=== PATIENT | female | born 1935 | race Caucasian/White ===

== ENCOUNTER → 2020-10-11 | Outpatient (CLI) | payer MEDICARE, BC ==
[~2020-10-11] MED LIST: AMLO5TAB4 PO; FOLI-43 PO; GABA-532 PO; LEVO75TA7 PO; PRED5TAB48 PO
== END | disposition home or self-care (01) ==
LOC: MRI 12:49
PROVIDERS: ATTEND Internal Medicine Critical Care Medicine
DX: S83.241A Other tear of medial meniscus, current injury, right knee, initial encounter (principal); M25.462 Effusion, left knee; M06.9 Rheumatoid arthritis, unspecified; M94.262 Chondromalacia, left knee; X58.XXXA Exposure to other specified factors, initial encounter; Y93.89 Activity, other specified; Y92.89 Other specified places as the place of occurrence of the external cause; Y99.8 Other external cause status; M25.461 Effusion, right knee
CPT/HCPCS: 73721

== ENCOUNTER → 2021-03-15 | Outpatient (CLI) | payer MEDICARE, BC ==
[~2021-03-15] MED LIST changes: +BARIUM SULFATE 176 GM SUSP.RECON ONE; +EZ-HD SUSPENSION(BARIUM SULFATE 340GM) PO ONE
== END | disposition home or self-care (01) ==
LOC: RAD 09:22
PROVIDERS: ATTEND Internal Medicine Critical Care Medicine
DX: K44.9 Diaphragmatic hernia without obstruction or gangrene (principal); R13.10 Dysphagia, unspecified
CPT/HCPCS: 74220

== ENCOUNTER 2022-05-29 15:58 | Inpatient (IN) | payer MEDICARE, BC ==
[~2022-05-29] VITALS: Ht 154.9 cm; Wt 59.9 kg
[~2022-05-29 15:58] MED LIST changes: -BARIUM SULFATE 176 GM SUSP.RECON ONE; -EZ-HD SUSPENSION(BARIUM SULFATE 340GM) PO ONE
[2022-05-29] MEDS ORDERED: TETANUS AND DIPHTHERIA TOX/PF 0.5ML SYR (ADULT) IM ONE (17:00)
[2022-05-29] MEDS ORDERED: LIDOCAINE HCL 1% 20ML VIAL (Pyxis) INJ INFIL ONE (17:15)
[2022-05-29 17:16] LABS: BASOPHILS % 0.8 % (0.0-2.0); EOSINOPHILS % 0.5 % (0.0-5.0); HEMATOCRIT. 33.2 % (36.0-48.0); HEMOGLOBIN. 11.1 g/dL (12.0-16.0); LYMPHOCYTES % 12.4 % (20.0-50.0); MEAN CORPUSCULAR VOLUME 89.4 fL (81.0-99.0); MEAN PLATELET VOLUME 7.8 fl (7.4-10.4); MONOCYTES % 9.5 % (2.0-8.0); NEUTROPHILS % 76.8 % (40.0-76.0); PLATELET 349 x1000/uL (130-400); RED BLOOD CELL COUNT 3.72 mill/uL (4.2-5.4); RED CELL DISTRIBUTION WIDTH 18.1 % (11.6-14.6)
[2022-05-29 17:26] LABS: CHLORIDE 110 mEq/L (98-107)
[2022-05-29] MEDS ORDERED: POTASSIUM CHLORIDE 20MEQ/PACKET PO ONE (18:00)
[2022-05-29] MEDS ORDERED: TETANUS, DIPHTHERIA, PERTUSSIS VAC/PF 0.5ML (>10YR OLD) IM ONE ×2 (18:15→18:45)
[2022-05-29] MEDS ORDERED: CEPHALEXIN 250MG CAPSULE PO ONE (18:15)
[2022-05-29] MEDS ORDERED: LIDOCAINE HCL 1% 10 MG/ML 10ML VIAL IJ NR (18:15)
[2022-05-29] MEDS ORDERED: POTASSIUM CHLORIDE 20MEQ/PACKET PO NR (18:15)
[2022-05-30] MEDS ORDERED: CLONIDINE 0.1MG TABLET PO PRN (00:45)
[2022-05-30] MEDS ORDERED: ACETAMINOPHEN 325MG TABLET PO PRN ×2 (00:45)
[2022-05-30] MEDS ORDERED: ONDANSETRON HCL 4MG/2ML INJ IV PRN (00:45)
[2022-05-30] MEDS ORDERED: GUAIFENESIN 200MG/10ML SUGAR FREE UDC PO PRN (00:45)
[2022-05-30] MEDS ORDERED: ZOLPIDEM TARTRATE 5MG TABLET PO PRN (00:45)
[2022-05-30] MEDS ORDERED: NALOXONE HCL 0.4MG/ML VIAL IV PRN (01:00)
[2022-05-30 02:13] LABS: CLARITY URINE CLEAR (CLEAR); COLOR URINE YELLOW (YELLOW); KETONES URINE 1+ (NEGATIVE); LEUKOCYTE ESTERASE URINE NEGATIVE (NEGATIVE); NITRITE URINE NEGATIVE (NEGATIVE); OCCULT BLOOD URINE NEGATIVE (NEGATIVE); PROTEIN URINE 1+ (NEGATIVE); SPECIFIC GRAVITY URINE 1.012 (1.005-1.030); UROBILINOGEN URINE 0.2 E.U./dL (0.2-1.0)
[2022-05-30] MEDS: HYDROCODONE/ACETAMINOPHEN 5/325MG TABLET PO PRN (04:52)
[2022-05-30] MEDS: LEVOTHYROXINE SODIUM 75MCG TABLET PO SCH (08:32)
[2022-05-30] MEDS: POTASSIUM CHLORIDE 20MEQ TABLET SR PO SCH (09:41)
[2022-05-30] MEDS ORDERED: MAGNESIUM 2 G PREMIX 50 ML IV NR (12:00)
[2022-05-30] MEDS ORDERED: POTASSIUM CHLORIDE INJ 40 MEQ in DEXT 5% WATER 250 ML IV ONE (15:45)
[2022-05-30] MEDS: KCL 20MEQ/100ML X 2 FOR TOTAL KCL 40MEQ/200ML IV SCH ×2 (16:30→19:30)
[2022-05-31 02:10] VITALS: BP 148/76
[2022-05-31] MEDS: HYDROCODONE/ACETAMINOPHEN 5/325MG TABLET PO PRN ×3 (02:59→16:59)
[2022-05-31] MEDS: LEVOTHYROXINE SODIUM 75MCG TABLET PO SCH (05:51)
[2022-05-31] MEDS ORDERED: AMLO5TAB88 MT (07:06)
[2022-05-31] MEDS ORDERED: IBUP-2030 MT (07:06)
[2022-05-31] MEDS ORDERED: LIP40 MT (07:06)
[2022-05-31] MEDS ORDERED: ESTR1TAB17 MT (07:06)
[2022-05-31] MEDS ORDERED: OMEP20CA14 MT (07:06)
[2022-05-31] MEDS ORDERED: METH2.5T PO (07:06)
[2022-05-31] MEDS ORDERED: HYDR-4009 MT (07:06)
[2022-05-31] MEDS ORDERED: ENAL5TAB21 MT (07:06)
[2022-05-31] MEDS ORDERED: ONDA4TAB11 PO (07:06)
[2022-05-31] MEDS ORDERED: FOLI-43 MT (07:06)
[2022-05-31 08:00] VITALS: BP 122/54
[2022-05-31 08:27] LABS: BASOPHILS % 0.5 % (0.0-2.0); EOSINOPHILS % 0.4 % (0.0-5.0); HEMATOCRIT. 31.6 % (36.0-48.0); HEMOGLOBIN. 10.2 g/dL (12.0-16.0); LYMPHOCYTES % 15.9 % (20.0-50.0); MEAN CORPUSCULAR HEMOGLOBIN 29.1 pg (28.0-32.0); MEAN PLATELET VOLUME 7.4 fl (7.4-10.4); MONOCYTES % 9.8 % (2.0-8.0); NEUTROPHILS % 73.4 % (40.0-76.0); PLATELET 359 x1000/uL (130-400); RED BLOOD CELL COUNT 3.52 mill/uL (4.2-5.4); RED CELL DISTRIBUTION WIDTH 18.8 % (11.6-14.6)
[2022-05-31] MEDS: POTASSIUM CHLORIDE 20MEQ TABLET SR PO SCH (09:00)
[2022-05-31 12:00] VITALS: BP 120/63
[2022-05-31 12:09] VITALS: BP 120/63
[2022-05-31 16:00] VITALS: BP 151/63
[2022-05-31 17:10] VITALS: BP 151/63
== END 2022-05-31 17:30 | DRG 581 ==
LOC: ER 15:58 → MICUSO 18:03 → 7EST 05-31 02:20
PROVIDERS: ADMIT Internal Medicine; ATTEND Internal Medicine
PROC: 0JQG0ZZ Repair Right Lower Arm Subcutaneous Tissue and Fascia, Open Approach (ICD-10-PCS; principal; 2022-05-29)
DX: S51.811A Laceration without foreign body of right forearm, initial encounter (principal); E87.6 Hypokalemia; G62.9 Polyneuropathy, unspecified; E03.9 Hypothyroidism, unspecified; B02.9 Zoster without complications; G89.29 Other chronic pain; K21.9 Gastro-esophageal reflux disease without esophagitis; M06.9 Rheumatoid arthritis, unspecified; M19.90 Unspecified osteoarthritis, unspecified site; R62.7 Adult failure to thrive; I73.9 Peripheral vascular disease, unspecified; Z88.2 Allergy status to sulfonamides; Z91.048 Other nonmedicinal substance allergy status; W19.XXXA Unspecified fall, initial encounter; Y93.89 Activity, other specified; Y92.009 Unspecified place in unspecified non-institutional (private) residence as the place of occurrence of the external cause; Y99.8 Other external cause status; Z68.25 Body mass index [BMI] 25.0-25.9, adult
CPT/HCPCS: 36415; 71045; 72170; 73560; 80048; 80053; 81003; 83735; 83880; 84443; 84484; 85025; 90714; 90715; 93970; 97162; 97166; 97530; 99285; J2405; J3475; J3480; J3490

== ENCOUNTER 2022-06-12 12:35 | Inpatient (IN) | payer MEDICARE, BC ==
[~2022-06-12] VITALS: Ht 154.9 cm; Wt 63.0 kg
[~2022-06-12 12:35] MED LIST changes: +AMLO5TAB88 MT; +ENAL5TAB21 MT; +ESTR1TAB17 MT; +FOLI-43 MT; +HYDR-4009 MT; +IBUP-2030 MT; +LIP40 MT; +METH2.5T PO; +OMEP20CA14 MT; +ONDA4TAB11 PO
[2022-06-12 13:00] VITALS: BP 138/59
[2022-06-12 14:00] VITALS: BP 156/81
[2022-06-12] MEDS ORDERED: ONDANSETRON HCL 4MG/2ML INJ IV PRN (14:30)
[2022-06-12] MEDS ORDERED: DIPHENHYDRAMINE 50MG/ML VIAL IV PRN (14:30)
[2022-06-12] MEDS ORDERED: CLONIDINE 0.1MG TABLET PO PRN (14:30)
[2022-06-12] MEDS ORDERED: MAGNESIUM/ALUMINUM HYDROXIDE/SIMETHICONE 30ML UDC PO PRN (14:30)
[2022-06-12] MEDS ORDERED: ENOXAPARIN 40MG/0.4ML SYR SUBCUT SCH (14:30)
[2022-06-12] MEDS ORDERED: GUAIFENESIN 200MG/10ML SUGAR FREE UDC PO PRN (14:30)
[2022-06-12] MEDS: ENOXAPARIN 30MG/0.3ML SYR SUBCUT SCH (15:12)
[2022-06-12] MEDS: DEXT 5%/0.45% NACL 1000ML 1,000 ML IV SCH (15:12)
[2022-06-12 16:00] VITALS: BP 146/67
[2022-06-12 20:00] VITALS: BP 141/61
[2022-06-13] VITALS: BP 161/60
[2022-06-13 04:00] VITALS: BP 152/61
[2022-06-13] MEDS: DEXT 5%/0.45% NACL 1000ML 1,000 ML IV SCH ×2 (04:21→17:40)
[2022-06-13] MEDS: LEVOTHYROXINE SODIUM 100MCG TABLET PO SCH (06:49)
[2022-06-13 08:00] VITALS: BP 155/62
[2022-06-13] MEDS: PANTOPRAZOLE SODIUM 40 MG/VIAL IV SCH (09:58)
[2022-06-13] MEDS: LIDOCAINE 5% PATCH TOP SCH (09:59)
[2022-06-13 12:00] VITALS: BP 160/84
[2022-06-13] MEDS: ACETAMINOPHEN 325MG TABLET PO PRN ×2 (12:07→18:55)
[2022-06-13] MEDS: ENOXAPARIN 30MG/0.3ML SYR SUBCUT SCH (14:59)
[2022-06-13 16:00] VITALS: BP 126/47
[2022-06-13 16:36] LABS: HEMATOCRIT. 27.7 % (36.0-48.0); HEMOGLOBIN. 8.7 g/dL (12.0-16.0); MEAN CORPUSCULAR HEMOGLOBIN 28.1 pg (28.0-32.0); MEAN CORPUSCULAR VOLUME 89.5 fL (81.0-99.0); MEAN PLATELET VOLUME 6.7 fl (7.4-10.4); PLATELET 897 x1000/uL (130-400); RED CELL DISTRIBUTION WIDTH 19.4 % (11.6-14.6)
[2022-06-13 16:57] LABS: CHLORIDE 111 mEq/L (98-107)
[2022-06-13] MEDS ORDERED: CEFTRIAXONE 1 G PREMIX 50 ML IV SCH (18:45)
[2022-06-13 20:00] VITALS: BP 127/49
[2022-06-13 20:27] LABS: PLATELET ESTIMATE MARKEDLY INCREASED
[2022-06-13] MEDS: CEFTRIAXONE 1,000 MG in DEXTROSE 5% WATER 50 ML IV SCH (20:55)
[2022-06-14] VITALS: BP 110/47
[2022-06-14 04:00] VITALS: BP 102/48
[2022-06-14] MEDS: LEVOTHYROXINE SODIUM 100MCG TABLET PO SCH (06:49)
[2022-06-14] MEDS: DEXT 5%/0.45% NACL 1000ML 1,000 ML IV SCH ×2 (06:52→17:29)
[2022-06-14 07:51] LABS: HEMATOCRIT. 26.7 % (36.0-48.0); HEMOGLOBIN. 8.1 g/dL (12.0-16.0); MEAN CORPUSCULAR HEMOGLOBIN 27.9 pg (28.0-32.0); MEAN CORPUSCULAR VOLUME 91.6 fL (81.0-99.0); MEAN PLATELET VOLUME 6.6 fl (7.4-10.4); PLATELET 705 x1000/uL (130-400); RED BLOOD CELL COUNT 2.92 mill/uL (4.2-5.4); RED CELL DISTRIBUTION WIDTH 19.2 % (11.6-14.6)
[2022-06-14 08:07] LABS: CHLORIDE 112 mEq/L (98-107)
[2022-06-14 08:12] VITALS: BP 113/46
[2022-06-14] MEDS: PANTOPRAZOLE SODIUM 40 MG/VIAL IV SCH (08:13)
[2022-06-14] MEDS: LIDOCAINE 5% PATCH TOP SCH (08:14)
[2022-06-14 12:00] VITALS: BP 110/51
[2022-06-14 12:55] LABS: PLATELET ESTIMATE INCREASED
[2022-06-14] MEDS: ENOXAPARIN 30MG/0.3ML SYR SUBCUT SCH (14:22)
[2022-06-14 16:00] VITALS: BP 110/60
[2022-06-14 16:55] LABS: BG BASE EXCESS -6.6 mmol/L (-2.0-2.0); BG CARBOXYHEMOGLOBIN 0.3 % (0.5-1.5); BG DEOXYHEMOGLOBIN 7.3 % (0.0-5.0); BG FRACTION INSPIRED OXYGEN 21; BG HCO3 ACT 16.7 mmol/L (22.0-26.0); BG METHEMOGLOBIN 0.3 % (0.0-1.5); BG OXYGEN SATURATION 92.7 % (92.0-98.5); BG OXYHEMOGLOBIN 92.1 % (94.0-97.0); BG PCO2 26.1 mmHg (35.0-45.0); BG PH 7.425 (7.350-7.450); BG PO2 65.6 mmHg (75.0-100.0); BG SAMPLE SITE LEFT BRACHIAL; BG TOTAL HEMOGLOBIN 8.8 g/dL (12.0-18.0); BG VENT MODE ROOM AIR
[2022-06-14 17:13] LABS: CLARITY URINE CLEAR (CLEAR); COLOR URINE YELLOW (YELLOW); KETONES URINE NEGATIVE (NEGATIVE); LEUKOCYTE ESTERASE URINE NEGATIVE (NEGATIVE); NITRITE URINE NEGATIVE (NEGATIVE); OCCULT BLOOD URINE NEGATIVE (NEGATIVE); PROTEIN URINE TRACE (NEGATIVE); SPECIFIC GRAVITY URINE 1.013 (1.005-1.030)
[2022-06-14] MEDS: CEFTRIAXONE 1,000 MG in DEXTROSE 5% WATER 50 ML IV SCH (19:55)
[2022-06-14 20:00] VITALS: BP 124/53
[2022-06-15] VITALS: BP 123/55
[2022-06-15] MEDS: DEXT 5%/0.45% NACL 1000ML 1,000 ML IV SCH ×3 (01:47→21:47)
[2022-06-15 04:00] VITALS: BP 130/54
[2022-06-15 08:00] VITALS: BP 119/58
[2022-06-15] MEDS: LEVOTHYROXINE SODIUM 100MCG TABLET PO SCH (08:42)
[2022-06-15 11:23] LABS: HEMATOCRIT. 24.5 % (36.0-48.0); HEMOGLOBIN. 8.1 g/dL (12.0-16.0); MEAN CORPUSCULAR HEMOGLOBIN 28.5 pg (28.0-32.0); MEAN PLATELET VOLUME 6.8 fl (7.4-10.4); PLATELET 611 x1000/uL (130-400); RED BLOOD CELL COUNT 2.84 mill/uL (4.2-5.4); RED CELL DISTRIBUTION WIDTH 18.4 % (11.6-14.6)
[2022-06-15 11:25] LABS: MEAN CORPUSCULAR VOLUME 86.3 fL (81.0-99.0)
[2022-06-15 12:00] VITALS: BP 135/85
[2022-06-15] MEDS ORDERED: [UNRECOGNIZED DRUG - REMARK] XX SCH (14:15)
[2022-06-15 15:21] LABS: PLATELET ESTIMATE INCREASED
[2022-06-15] MEDS: PANTOPRAZOLE SODIUM 40 MG/VIAL IV SCH (15:35)
[2022-06-15] MEDS: LIDOCAINE 5% PATCH TOP SCH (15:42)
[2022-06-15] MEDS: ENOXAPARIN 30MG/0.3ML SYR SUBCUT SCH (15:49)
[2022-06-15 16:00] VITALS: BP 133/59
[2022-06-15] MEDS ORDERED: LEVOFLOXACIN 500MG PREMIX 100 ML IV NR (16:00)
[2022-06-15] MEDS: ACETAMINOPHEN 325MG TABLET PO PRN (19:11)
[2022-06-15 20:00] VITALS: BP 122/53
[2022-06-16] VITALS: BP 133/68
[2022-06-16 04:00] VITALS: BP 145/73
[2022-06-16 07:03] LABS: BASOPHILS % 1.3 % (0.0-2.0); EOSINOPHILS % 6.9 % (0.0-5.0); HEMATOCRIT. 23.1 % (36.0-48.0); HEMOGLOBIN. 7.6 g/dL (12.0-16.0); MEAN CORPUSCULAR HEMOGLOBIN 28.7 pg (28.0-32.0); MEAN PLATELET VOLUME 6.7 fl (7.4-10.4); MONOCYTES % 4.9 % (2.0-8.0); NEUTROPHILS % 72.9 % (40.0-76.0); PLATELET 654 x1000/uL (130-400); RED BLOOD CELL COUNT 2.66 mill/uL (4.2-5.4); RED CELL DISTRIBUTION WIDTH 19.3 % (11.6-14.6)
[2022-06-16 07:36] LABS: CHLORIDE 115 mEq/L (98-107)
[2022-06-16] MEDS: LEVOTHYROXINE SODIUM 100MCG TABLET PO SCH (07:58)
[2022-06-16 08:00] VITALS: BP 147/58
[2022-06-16] MEDS: PANTOPRAZOLE SODIUM 40 MG/VIAL IV SCH (09:46)
[2022-06-16] MEDS: LIDOCAINE 5% PATCH TOP SCH (09:47)
[2022-06-16 12:00] VITALS: BP 143/58
[2022-06-16] MEDS ORDERED: LEVOFLOXACIN 250MG PREMIX 50 ML IV SCH (14:00)
[2022-06-16] MEDS: ENOXAPARIN 30MG/0.3ML SYR SUBCUT SCH (14:26)
[2022-06-16] MEDS: MEGESTROL ACETATE 400 MG/10 ML UDC PO SCH (14:26)
[2022-06-16 15:45] LABS: VITAMIN B12 SERUM 1369 pg/mL (211-911)
[2022-06-16 16:00] VITALS: BP 153/67
[2022-06-16] MEDS ORDERED: LEVOFLOXACIN 500MG PREMIX 100 ML IV SCH (16:00)
[2022-06-16] MEDS: DEXT 5%/0.45% NACL 1000ML 1,000 ML IV SCH (18:22)
[2022-06-16 20:00] VITALS: BP 158/69
[2022-06-16] MEDS ORDERED: POTASSIUM CHLORIDE INJ 40 MEQ in DEXT 5% WATER 500 ML IV NR (22:00)
[2022-06-16] MEDS: ACETAMINOPHEN 325MG TABLET PO PRN (22:37)
[2022-06-17] VITALS: BP 146/76
[2022-06-17 04:00] VITALS: BP 147/76
[2022-06-17] MEDS: DEXT 5%/0.45% NACL 1000ML 1,000 ML IV SCH (06:37)
[2022-06-17] MEDS: LEVOTHYROXINE SODIUM 100MCG TABLET PO SCH (06:38)
[2022-06-17 08:00] VITALS: BP 149/77
[2022-06-17] MEDS: PANTOPRAZOLE SODIUM 40 MG/VIAL IV SCH (09:00)
[2022-06-17] MEDS: MEGESTROL ACETATE 400 MG/10 ML UDC PO SCH (09:37)
[2022-06-17] MEDS: LIDOCAINE 5% PATCH TOP SCH (09:37)
[2022-06-17 10:34] LABS: BASOPHILS % 0.5 % (0.0-2.0); EOSINOPHILS % 7.2 % (0.0-5.0); HEMATOCRIT. 25.2 % (36.0-48.0); HEMOGLOBIN. 8.1 g/dL (12.0-16.0); LYMPHOCYTES % 15.4 % (20.0-50.0); MEAN CORPUSCULAR HEMOGLOBIN 27.9 pg (28.0-32.0); MEAN CORPUSCULAR VOLUME 86.5 fL (81.0-99.0); MEAN PLATELET VOLUME 6.2 fl (7.4-10.4); MONOCYTES % 4.3 % (2.0-8.0); NEUTROPHILS % 72.6 % (40.0-76.0); PLATELET 634 x1000/uL (130-400); RED BLOOD CELL COUNT 2.91 mill/uL (4.2-5.4); RED CELL DISTRIBUTION WIDTH 18.8 % (11.6-14.6)
[2022-06-17 10:40] LABS: CHLORIDE 112 mEq/L (98-107)
[2022-06-17 10:49] LABS: T4 FREE 1.35 ng/dL (0.76-1.46)
[2022-06-17 12:00] VITALS: BP 139/67
[2022-06-17] MEDS ORDERED: POTASSIUM CHLORIDE INJ 40 MEQ in DEXT 5% WATER 500 ML IV NR (12:30)
[2022-06-17] MEDS ORDERED: POTASSIUM CHLORIDE 20MEQ TABLET SR PO NR (15:00)
[2022-06-17] MEDS ORDERED: ONDANSETRON HCL 4MG TABLET PO PRN (15:15)
[2022-06-17] MEDS: ENOXAPARIN 30MG/0.3ML SYR SUBCUT SCH (15:40)
[2022-06-17] MEDS ORDERED: LEVOFLOXACIN 500MG TABLET PO NR (16:00)
[2022-06-17 20:00] VITALS: BP 134/75
[2022-06-17] MEDS: OMEPRAZOLE 20MG CAPSULE EXTENDED RELEASE PO SCH (21:35)
[2022-06-17] MEDS: ACETAMINOPHEN 325MG TABLET PO PRN (21:36)
[2022-06-18] VITALS: BP 134/60
[2022-06-18 04:00] VITALS: BP 150/59
[2022-06-18] MEDS: OMEPRAZOLE 20MG CAPSULE EXTENDED RELEASE PO SCH (06:35)
[2022-06-18] MEDS: LEVOTHYROXINE SODIUM 100MCG TABLET PO SCH (06:35)
[2022-06-18 08:00] VITALS: BP 159/78
[2022-06-18] MEDS: MEGESTROL ACETATE 400 MG/10 ML UDC PO SCH (09:36)
[2022-06-18] MEDS: LIDOCAINE 5% PATCH TOP SCH (09:36)
[2022-06-18] MEDS ORDERED: LEVOFLOXACIN 500MG TABLET PO SCH (11:00)
[2022-06-18] MEDS ORDERED: MAGNESIUM GLUCONATE 500MG TABLET PO SCH (11:00)
[2022-06-18 11:51] VITALS: BP 19/140
[2022-06-18 12:00] VITALS: BP 140/72
[2022-06-18 15:57] VITALS: BP 131/53
[2022-06-19] MEDS ORDERED: MAGNESIUM GLUCONATE 500MG TABLET PO SCH (09:00)
== END 2022-06-18 15:30 | disposition home or self-care (01) | DRG 871 ==
LOC: 6EST 12:35
PROVIDERS: ADMIT Internal Medicine; ATTEND Internal Medicine
PROC: 4A00X4Z Measurement of Central Nervous Electrical Activity, External Approach (ICD-10-PCS; principal; 2022-06-16)
DX: A41.59 Other Gram-negative sepsis (principal); E43 Unspecified severe protein-calorie malnutrition; N13.30 Unspecified hydronephrosis; N17.9 Acute kidney failure, unspecified; K21.9 Gastro-esophageal reflux disease without esophagitis; K22.4 Dyskinesia of esophagus; E87.6 Hypokalemia; K11.7 Disturbances of salivary secretion; M06.9 Rheumatoid arthritis, unspecified; S51.811A Laceration without foreign body of right forearm, initial encounter; M48.02 Spinal stenosis, cervical region; Z20.822 Contact with and (suspected) exposure to COVID-19; G89.29 Other chronic pain; E03.9 Hypothyroidism, unspecified; R62.7 Adult failure to thrive; L89.626 Pressure-induced deep tissue damage of left heel; M48.061 Spinal stenosis, lumbar region without neurogenic claudication; M47.812 Spondylosis without myelopathy or radiculopathy, cervical region; D75.839 Thrombocytosis, unspecified; I25.10 Atherosclerotic heart disease of native coronary artery without angina pectoris; E83.42 Hypomagnesemia; W18.30XA Fall on same level, unspecified, initial encounter; Z88.2 Allergy status to sulfonamides; Z85.72 Personal history of non-Hodgkin lymphomas; Z91.048 Other nonmedicinal substance allergy status; Z68.26 Body mass index [BMI] 26.0-26.9, adult; Y93.89 Activity, other specified; Y92.009 Unspecified place in unspecified non-institutional (private) residence as the place of occurrence of the external cause; Y99.8 Other external cause status
CPT/HCPCS: 36415; 36600; 70551; 71045; 74176; 80048; 81003; 82040; 82375; 82607; 82805; 82962; 83605; 83615; 83735; 84134; 84145; 84439; 84443; 85025; 85651; 87077; 87186; 87426; 92610; 93005; 93306; 93923; 95816; 97110; 97162; 97166; 97530; 97535; C9113; J0696; J1650; J1956; J3480; J7060; A4315